=== PATIENT | male | born 1990 | race Caucasian/White ===

== ENCOUNTER 2023-09-02 13:51 | Outpatient (CLI) | payer BC, SELFPAY | END 2023-09-02 13:52 | disposition home or self-care (01) | PROVIDERS: PCP Family Medicine; Visit Provider Family Medicine | DX: E87.5 Hyperkalemia (principal); D75.1 Secondary polycythemia; Z11.1 Encounter for screening for respiratory tuberculosis; Z13.29 Encounter for screening for other suspected endocrine disorder; Z12.5 Encounter for screening for malignant neoplasm of prostate | CPT/HCPCS: 80053; 80061; 82306; 84443; 86140; 86480; 86618; G0103 ==

== ENCOUNTER 2023-10-21 13:52 | Outpatient (CLI) | payer BC, SELFPAY ==
--- OUTSIDE RECORDS SUMMARY | 2023-10-21 13:54 | XMS_ITS | Data Portability ---
Author Organization [facility], [facility] Address [address] [place] [address] Care Team Providers Care Embroiderer Name Role Phone [facility] Primary Care Provider Assessment No assessment recorded. Plan of Treatment Reminders Order Date Submit Date Provider Last Modified By Organization Details Last Modified Time Details Appointments None recorded . Lab None recorded . Referral None recorded . Procedures None recorded . Surgeries None recorded . Imaging None recorded . Medication Orders oxybutyn in chloride ER 10 mg tablet,e xtended release 24 hr 2023 024 rstromabhinav [id number], [address], [place], [address], 4 16:09:37 Patient TargetsNo targets recorded. Patient InstructionsNo instructions recorded. Reason for Referral None Reported. Results Created Date Observation Date Name Description Value Unit Range Abnormal Flag LastModifiedBy Organization Detail LastModifiedTime 10/03/19 24 09/29/2023 bladd er scan (PROC ) No observ ation record ed. BARCODE Not Available 10/03/2023 15:11:57 Result Notes None recorded. Procedures Surgical History Date Name Laterality Status Provider Name and Address Organization Details Recorded Time 4 Bladder Scan completed Maria rosado [facility] 09/29/2023 15:50:19 3 repair of inguinal hernia completed Maria rosado [facility] 09/29/2023 15:42:56 3 repair of hydrocele completed Maria rosado [facility] 09/29/2023 15:43:33 Imaging Results Imaging Date Name Status LastModified by Organiz ation Details LastModified Time 09/29/2023 bladder scan (PROC) completed BARCODE Information not available 10/03/2023 15:11:57 Procedure Notes None recorded. Medical Equipment None Reported. Allergies No known drug allergies Medications Name Sig Start Date Stop Date Status Note LastModified by Organization Details LastModified Time amoxicillin 500 mg capsule PLEASE SEE ATTACHED FOR DETAILED DIRECTION S 09/28 completed Not Available Not Available Not Available trazodone 50 mg tablet TAKE 0.5-1 TAB BY MOUTH DAILY active Not Available Not Available No t Available oxybutynin chloride ER 10 mg tablet,exte nded release 24 hr Take 1 tablet every day by oral route. active Not Available Not Available No t Available dextroamphe tamine-amph etamine 10 mg tablet TAKE 1 TAB ORALLY TWICE A DAY NEEDED FOR INATTENTI ON ADMINISTE R DOSES AT LEAST 4-6 HOURS APART active Not Available Not Available No t Available tamsulosin 0.4 mg capsule TAKE 0.4 - 0.8 MG (1 - 2 X 0.4 MG CAPSULES) ORALLY EVERY DAY AT BEDTIME active Not Available Not Available No t Available polymyxin B sulfate 10,000 unit-trimet hoprim 1 mg/mL eye drops 09/28 completed Not Available Not Available Not Available Vitals Date Recorded Body height Body mass index (BMI) Body weight Provider Name and Address Organization Details Last Updated DateTime 09/29/2023 182.88 cm 23.1 kg/m2 03695.7 g Mariaminh Bailey [facility] 09/29/2023 15:40:01 Social History Question Answer Notes LastModified by Organizat ion Details LastModified Time Tobacco Smoking Status Never Smoker Maria Bailey null, [facility] 09/29/2023 15:42:00 What Is Your Level Of Alcohol Consumption? Occasional Information not available 09/29/2023 What Is Your Level Of Caffeine Consumption? Moderate Information not available 09/29/2023 What Was The Date Of Your Most Recent Tobacco Screening? 09/29/2023 Information not available 09/29/2023 Sex: Male Functional Status None recorded. Mental Status None recorded. Family History Relationship Description Onset Age of this Age Resolved Age Notes Mother Malignant melanoma Maternal Uncle Family history of cancer of colon Maternal Grandmother Malignant tumor of lung Paternal Grandmother Malignant tumor of lung Medical History Condition Response Other Y High Blood Pressure N Kidney Stones N Depression N Lung Disease N GERD/Acid Reflux N Diabetes N Sexually Transmitted Infection N Bleeding Disorder N Cancer N High Cholesterol N Heart Disease N Past Encounters Encounter ID Performer Location Encounter Start Date Encounter Closed Date Diagnosis/Indication Diagnosis SNOMED-CT Code [id number] Alfonso Liao MD [facility] [address] [place] [address] 09/29/2023 14:55:09 09/30/2023 08:21:00 Increased frequency of urination 798080755 Sensation as if urinary bladder still full 366956583 Nocturia 890108665 Nocturnal enuresis 09749 08 Urinary incontinence 165 [id number] Health Concerns Section Related Observation LastModified by Organization Detai ls LastModified Time None Recorded Concern Status LastModified by Organization Details LastModified Time None Recorded Advance Directives Directive None Recorded Payers Encounter Date Sequence Insurance Name Policy Number Policy Bowers Covered Member ID Bowers Member ID Guarantor Name 09/29/2023 1 [place] [id number] Kevin Jeter [id number] Kevin Jeter Notes Date Note Type Note Provider Name and Address Organization Details Recorded Time 09/29/2023 text/html HPI Notes: Mr. Jeter is a very pleasant 33 year old male who is referred to me by his PCP, Dr. Gin Gregory, regarding ongoing voiding issues. His urination current consists of urinary frequency, sensation of incomplete emptying, urinary incontinence, nocturia, and occasional nocturnal enuresis. Patient reports that this has been an ongoing issue now for a few years but worsening. Currently a lot of life stressors with new baby and grad school. Underwent extensive work up with [facility] in 2017 without any etiology discovered. Thus far he has tried alpha dorcas without success. He reports that his libido is intact Sexual function consists of mild ED. Alfonso Liao MD [address], [place], [address], [facility] 09/29/2023 22:02:30
--- OUTSIDE RECORDS SUMMARY | 2023-10-21 13:54 | XMS_ITS | Continuity of Care Document ---
Author Organization [facility], [facility] Address [address] [place] [address] Care Team Providers Care Rn Documentation Specialist Name Role Phone [facility] Primary Care Provider Assessment No [...] tablet,e xtended release 24 hr 2023 [id number], [address], [place], [address], 16:09:37 Patient TargetsNo targets recorded. Patient InstructionsNo [...] Recorded Time 4 Bladder Scan completed Maria rosado, [facility] 09/29/2023 15:50:19 3 repair of inguinal hernia completed Maria rosado, [facility] 09/29/2023 15:42:56 3 repair of hydrocele completed Maria rosado [facility] 09/29/2023 15:43:33 Imaging Results None recorded. Procedure Notes None recorded. Medical Equipment None [...] Updated DateTime 09/29/2023 182.88 cm 23.1 kg/m2 91365.7 g Maria Bailey [facility] 09/29/2023 15:40:01 Social History Question Answer Notes LastModified by Organizat ion Details LastModified Time Tobacco Smoking Status Never Smoker Maria Bailey null, [facility] 09/29/2023 15:42:00 What Is Your Level [...] tumor of lung Medical History Condition Response Sexually Transmitted Infection N Diabetes N Bleeding Disorder N Other Y High Blood Pressure N Kidney Stones N High Cholesterol N GERD/Acid Reflux N Heart Disease N Cancer N Lung Disease N Depression N Past Encounters Encounter ID Performer Location Encounter Start Date Encounter Closed Date Diagnosis/Indication Diagnosis SNOMED-CT Code [id number] Alfonso Liao MD [facility] [address] [place] [address] 09/29/2023 14:55:09 09/30/2023 08:21:00 Increased frequency of urination 708708126 Sensation as if urinary bladder still full 206480198 Nocturia 941110777 Nocturnal enuresis 25155 08 Urinary incontinence 165 610958 Health Concerns Section Related Observation LastModified by Organization Detai ls LastModified Time None Recorded Concern Status LastModified by Organization Details LastModified Time None Recorded Payers Encounter Date Sequence Insurance Name Policy Number Policy Bowers Covered Member ID Bowers Member ID Guarantor Name 09/29/2023 1 [place] [id number] Kevin Jeter [id number] Kevni Jeter Notes Date Note Type Note Provider [...] grad school. Underwent extensive work up with [facility] in 2017 without any etiology discovered. Thus far he has tried alpha dorcas without success. He reports that his libido is intact Sexual function consists of mild ED. Alfonso Liao MD [address], [place], [address], [facility] 09/29/2023 22:02:30
--- NOTE | 2023-10-21 14:00 | CRLHL7_ITS ---
For Patients: As a result of the Century Cures Act, medical imaging exams and procedure reports are released immediately into your electronic medical record. You may view this report before your referring provider. If you have questions, please contact your health care provider. INDICATION: hx of hydrocele COMPARISON: none TECHNIQUE: Verma scale imaging was performed of the scrotum. In addition color Doppler and spectral Doppler analysis was performed of the testes. FINDINGS: The testes demonstrate normal arterial and venous blood flow on color Doppler and spectral Doppler analysis. The testes have uniform echogenicity with no evidence of a suspicious mass or area of inflammation. The right testis measures 4.0 x 2.9 x 3.2 cm in size and the left testis measures 4.0 x 2.7 x 2.6 cm. Right epididymal head cyst measures 7 x 6 x 7 millimeters. A small right hydrocele is present. No varicocele. IMPRESSION: Small right hydrocele. Right epididymal head cyst. Normal testicles. Dictated by Clinton Martino MD @ 10/23/2023 7:48:48 AM (Electronically Signed)
--- NOTE | 2023-10-21 14:30 | CRLHL7_ITS ---
For Patients: As a result of the Century Cures Act, medical imaging exams and procedure reports are released immediately into your electronic medical record. You may view this report before your referring provider. If you have questions, please contact your health care provider. INDICATION: Low back pain. Nocturia TECHNIQUE: Noncontrast sagittal and axial T1, T2, and sagittal STIR sequences are provided. No comparisons. FINDINGS: There is lumbarization of the L5 segment. Plain film correlation recommended prior to any surgical intervention. The overall stature, alignment and intrinsic marrow signal of the lumbar spine is within normal limits. Conus is normal. L4-5: 4 millimeter posterior central disc protrusion with underlying annular tear results in mild bilateral lateral recess narrowing but no significant central canal or foraminal narrowing. L5-S1: Sacralization of the transverse processes. No central canal or foraminal narrowing. Remainder of the lumbar spine is unremarkable, specifically no evidence of suspicious central canal or foraminal narrowing. IMPRESSION: 1. Sacralization of the L5 segment. Plain film correlation recommended prior to any surgical intervention. 2. Posterior central disc protrusion at L4-5 resulting in mild contact of the traversing L5 nerve roots. Dictated by Jacob Vaca MD @ 10/23/2023 1:34:21 PM (Electronically Signed)
== END 2023-10-21 13:53 | disposition home or self-care (01) ==
LOC: US 13:53
PROVIDERS: PCP Family Medicine; Visit Provider Family Medicine
DX: M54.50 Low back pain, unspecified (principal); M51.26 Other intervertebral disc displacement, lumbar region; N43.3 Hydrocele, unspecified; R32 Unspecified urinary incontinence; R35.1 Nocturia; Z87.438 Personal history of other diseases of male genital organs
CPT/HCPCS: 72148; 76870; 93976

== ENCOUNTER 2024-07-09 15:16 | Outpatient (CLI) | payer BC, SELFPAY | END 2024-07-09 15:17 | disposition home or self-care (01) | PROVIDERS: PCP Family Medicine; Visit Provider Family Medicine | DX: Z13.228 Encounter for screening for other metabolic disorders (principal); Z13.220 Encounter for screening for lipoid disorders; Z13.21 Encounter for screening for nutritional disorder; Z13.29 Encounter for screening for other suspected endocrine disorder; Z11.1 Encounter for screening for respiratory tuberculosis | CPT/HCPCS: 80053; 80061; 82306; 84443; 86480 ==

== ENCOUNTER 2024-11-22 12:50 | Outpatient (CLI) | payer BC, SELFPAY | END 2024-11-22 12:51 | disposition home or self-care (01) | LOC: RAD 12:51 | PROVIDERS: PCP Family Medicine; Visit Provider Family Medicine | DX: R00.0 Tachycardia, unspecified (principal); G90.A Postural orthostatic tachycardia syndrome [POTS]; R55 Syncope and collapse | CPT/HCPCS: 93306 ==

== ENCOUNTER 2025-02-08 13:00 | Outpatient (CLI) | payer BC, SELFPAY ==
--- NOTE | 2025-02-08 13:00 | CRLHL7_ITS ---
For Patients: As a result of the 21st Century Cures Act, medical imaging exams and procedure reports are released immediately into your electronic medical record. You may view this report before your referring provider. If you have questions, please contact your health care provider. INDICATION: OTALGIA, RIGHT EAR PAIN WORSE TECHNIQUE: CT of the temporal bones without contrast. Coronal and axial small field of view reconstructions of both temporal bones are included. COMPARISON: No prior studies are available for comparison at this institution. FINDINGS: RIGHT temporal bone: The external auditory canal is widely patent. No EAC stenosis or obstruction. The tympanic membrane is not thickened. The right middle ear is clear. No material is present within the sinus tympani. The ossicles are normal in appearance and location with no erosions or dislocation. The otic capsule is normal in appearance. No sclerosis within the labyrinthine canal. No fistula between the labyrinth and the middle ear. The vestibule and semicircular canals are normal in morphology with no evidence of semicircular canal dehiscence. Normal cochlear morphology with appropriate number of turns. Vestibular aqueduct is normal in size. Facial nerve canal is intact and normal in course/caliber. Petrous apex is normal. Mastoid air cells are clear. The carotid canal and jugular foramen are normal. LEFT temporal bone: The external auditory canal is widely patent. No EAC stenosis or obstruction. The tympanic membrane is not thickened. The left middle ear is clear. No material is present within the sinus tympani. The ossicles are normal in appearance and location with no erosions or dislocation. The otic capsule is normal in appearance. No sclerosis within the labyrinthine canal. No fistula between the labyrinth and the middle ear. The vestibule and semicircular canals are normal in morphology with no evidence of semicircular canal dehiscence. Normal cochlear morphology with appropriate number of turns. Vestibular aqueduct is normal in size. Facial nerve canal is intact and normal in course/caliber. Petrous apex is normal. Mastoid air cells are clear. The carotid canal and jugular foramen are normal. OTHER: No fracture or significant degenerative change, lytic or blastic process is demonstrated in the skull base or temporomandibular joints. The imaged intracranial structures are normal in appearance. Orbits are normal. Mild polypoid mucosal thickening in the ethmoid air cells, anterior hartmann of the sphenoid sinuses. Moderate polypoid mucosal thickening in the maxillary sinuses. IMPRESSION: 1. Unremarkable CT of the temporal bones. No evidence of cholesteatoma. 2. Paranasal sinus disease. Please note that all CT scans at this facility use dose modulation, iterative reconstruction, and/or weight-based dosing when appropriate to reduce radiation dose to as low as reasonably achievable. Dictated by Clinton Loya MD @ 02/11/2025 9:46:17 AM (Electronically Signed)
--- NOTE | 2025-02-08 13:45 | CRLHL7_ITS ---
For Patients: As a result of the Century Cures Act, medical imaging exams and procedure reports are released immediately into your electronic medical record. You may view this report before your referring provider. If you have questions, please contact your health care provider. INDICATION: Otalgia TECHNIQUE: Non-contrast sagittal T1, axial FLAIR, FSE T2, DWI, posterior fossa CISS images provided. Supplemental post contrast T1 weighted axial and coronal high resolution images through the posterior fossa with fat saturation and post contrast whole head axial T1 weighted images submitted. No comparisons. 20 cc of Dotarem was administered intravenously FINDINGS: The ventricles, sulci and gyri are of normal size, shape and contour for age. Midline structures are centrally located. No convincing evidence of suspicious intra- or extra-axial fluid collections. No regions of restricted diffusion. Expected flow-voids within the cavernous carotids and basilar artery. No suspicious masses within the internal auditory canals. No suspicious regions of abnormal parenchymal enhancement. Large left maxillary sinus mucous retention cyst or polyp. IMPRESSION: 1. No radiographic evidence of acute intracranial abnormalities. Dictated by Jacob Vaca MD @ 02/08/2025 6:26:31 PM (Electronically Signed)
== END 2025-02-08 13:01 | disposition home or self-care (01) ==
LOC: CT 13:02
PROVIDERS: PCP Family Medicine; Visit Provider Otolaryngology
DX: H92.09 Otalgia, unspecified ear (principal)
CPT/HCPCS: 70480; 70553; A9575